=== PATIENT | male | born 1960 | race Caucasian/White ===

== ENCOUNTER 2017-05-03 15:01 | Observation (INO) | payer OTHER ==
[2017-05-03 15:22] VITALS: BMI 37.2
[2017-05-03 15:47] LABS: EOS % 1.9 % (0-4.5); HEMOGLOBIN 16.8 GM/dL (11.7-16.9); LYMPH % 20.1 % (8-40); MCH 30.2 pg (25.7-33.7); MCHC 33.7 g/dl (32.0-35.9); MEAN CELL VOLUME 89.7 fl (80-96); MEAN PLT VOLUME 7.9 fl (7.5-11.1); MONO % 7.7 % (3.8-10.2); NEUT % 69.3 % (42.8-82.8); PLATELET COUNT 238 K/MM3 (134-434); RBC 5.57 M/mm3 (4.00-5.60); WHITE BLOOD COUNT 12.5 K/mm3 (4.0-10.0)
--- NOTE | 2017-05-03 15:47 | PDOC ---
History of Present Illness - General Chief Complaint: Shortness of Breath Stated Complaint: SOB - History of Present Illness Initial Comments: Mr Renner is a 56yo M with a PMHx of Afib, HTN, High Chol, Anxiety, Asthma who presented with acute onset shortness of breath and palpitations while walking in the park today at 2pm. He noticed dyspnea at rest and palpitations. Called EMS. Denies chest pain. Continues to say that it reminds him of his "panic attacks". He denies prior anginal symptoms, denies diaphoresis. Denies wheezing, cough, or chest tightness. Denies stressful event that occurred. He was seen at Dr Mendoza's office this morning, who he follows for newly diagnosed Afib. Of note, EKG in ambulance shows Afib @ 128bpm with ST depressions in I, aVL, V4 , V5, V6 PMD - Dr Lissett Avalos Past History - Past Medical History Allergies/Adverse Reactions: Allergies Allergy/AdvReac Type Severity Reaction Status Date / Time No Known Allergies Allergy Verified 02/01/16 11:07 Home Medications: Ambulatory Orders Bimatoprost [Lumigan] 1 drop IO DAILY 02/01/16 Fluticasone Propionate [Flovent Diskus] 2 puff IH DAILY 02/01/16 Tamsulosin HCl [Flomax -] 0.4 mg PO DAILY 02/01/16 Apixaban [Eliquis -] 2.5 mg PO BID 05/03/17 Diltiazem Cd [Cardizem Cd -] 360 mg PO DAILY 05/03/17 Montelukast Sodium [Singulair] 10 mg PO DAILY 05/03/17 Valsartan 320 mg PO DAILY 05/03/17 Atorvastatin Calcium 20 mg PO HS #30 tablet 05/04/17 Cardiac Disorders: Yes (a fib) COPD: No Diabetes: Yes (?) HTN: Yes Hypercholesterolemia: Yes Psychiatric Problems: Yes (anxiety) - Suicide/Smoking/Psychosocial Hx Smoking History: Never smoked Hx Alcohol Use: No Drug/Substance Use Hx: No Substance Use Type: None Review of Systems - Review of Systems Constitutional: No: Chills, Diaphoresis, Fever HEENTM: No: Eye Pain, Blurred Vision, Tearing Respiratory: Yes: Shortness of Breath. No: Cough, Orthopnea Cardiac (ROS): No: Chest Pain, Edema ABD/GI: No: Abdominal Distended, Constipated, Diarrhea : No: Burning, Dysuria, Discharge Musculoskeletal: No: Back Pain, Gout, Joint Pain Integumentary: No: Bruising, Change in Color, Dryness Neurological: No: Headache, Numbness, Paresthesia Psychiatric: No: Anxiety, Depression, Frequent Crying Endocrine: No: Excessive Sweating, Flushing Hematologic/Lymphatic: No: Anemia, Blood Clots, Easy Bleeding *Physical Exam - Vital Signs Last Vital Signs Temp Pulse Resp BP Pulse Ox 97.8 F 95 H 18 122/76 100 05/03/17 15:20 05/03/17 15:20 05/03/17 15:20 05/03/17 15:20 05/03/17 15:20 - Physical Exam Comments: GEN: AAOx3, NAD, Lying comfortably in bed HEENT: PERRLA, EOMi CV: S1, S2, irregularly irregular rhythm LUNG: CTABL ABD: Soft, NT, ND, normoactive BS MSK: No edema, no erythema NEURO: CN 2-12 intact ED Treatment Course - LABORATORY CBC & Chemistry Diagram: 05/04/17 05:05 05/04/17 05:05 - RADIOLOGY Radiology Studies Ordered: Category Date Time Status CHEST X-RAY PORTABLE* [RAD] Stat Radiology 05/03/17 15:33 Ordered Medical Decision Making - Medical Decision Making 56yo M with hx of HTN, HLD, Afib, Anxiety, Asthma presents with an episode of SOB and palpitations at rest. Denies CP. EKG in ambulance shows STD in lateral leads. Stat EKG in our ER, shows no ST or T wave changes, no Q waves. It is possible the patient went into RVR while driving and cause demand ischemia to lateral heart causing STD. Currently his HR is in 70s-80s, and his EKG shows no signs of ischemia. WIll get CBC, CMP, Coags, Cardiac profile, CXR. Dispo likely obs. Case d/w Dr Partida 05/03/17 17:08 Labs show leukocytosis (likely reactive), troponin negative. Discussed case w/ Dr Mendoza, who states that the patient has CAD risk factors. He agrees with tele observation. Would like serial troponins and repeat EKG. Patient agreeable. *DC/Admit/Observation/Transfer Diagnosis at time of Disposition: Atrial fibrillation Qualifiers: Atrial fibrillation type: unspecified Qualified Code(s): I48.91 - Unspecified atrial fibrillation - Discharge Dispostion Admit: Yes - Prescriptions - Referrals - Patient Instructions - Post Discharge Activity
--- NOTE | 2017-05-03 15:49 | PDOC ---
Attending Attestation - Resident Resident Name: RamonVu - ED Attending Attestation I have performed the following: I have examined & evaluated the patient, The case was reviewed & discussed with the resident, I agree w/resident's findings & plan, Exceptions are as noted - Physicial Exam PE: 05/03/17 16:06 Patient is awake and alert, obese, in no distress in the ER, afebrile; Normocephalic, atraumatic PERRLA, EOMI No JVD CTA Irregularly irregular No lower extremity edema - Medical Decision Making 05/03/17 16:06 Patient is a 56-year-old male with history of A. fib on eliquis, CAD, hypercholesterolemia presents by EMS after developing shortness of breath and what patient describes as anxiety. EKG obtained by EMS showed ST segment depressions in 1, aVL, V5 through V6 at the time of the patient's symptomatology. On arrival in the ER, patient's asymptomatic. Physical exam reveals no evidence of acute pulmonary edema, there are no focal neurological deficits and abdomen is soft and nontender to palpation. EKG shows rate controlled A. fib without evidence of acute ischemia. I suspect demand ischemia related to rate increase during the acute onset of shortness of breath. PE is unlikely. Given patient's comorbidities, Patient will require placement in observation for serial cardiac enzymes and a cardiac consult. <Eduardo Partida - Last Filed: 05/03/17 16:06> - HPI HPI: 05/03/17 16:12 The patient is a 56 year old male, with a significant past medical history of atrial fibrillation, hypertension, hyperlipidemia, anxiety, asthma, who presents to the emergency department via EMS with, shortness of breath and palpitations. The patient reports the shortness of breath and palpitations began at rest earlier today. He reports the symptoms are similar to his prior panic attacks. Allergies: NKA Documentation prepared by Mick Jarvis, acting as medical typist for Eduardo Partida MD. <Mick Jarvis - Last Filed: 05/03/17 16:13>
[2017-05-03 16:01] LABS: INR 1.11 (0.82-1.09); PROTHROMBIN TIME (PATIENT) 12.5 SEC (9.98-11.88)
[2017-05-03 16:04] LABS: ACTIVATED PTT 32.4 SECONDS (26.9-34.4)
[2017-05-03 16:53] LABS: ALBUMIN 3.6 g/dl (3.4-5.0); ANION GAP 6 (8-16); BILIRUBIN,TOTAL 1.2 mg/dL (0.2-1.0); BLOOD UREA NITROGEN 15 mg/dL (7-18); CALCIUM 8.2 mg/dL (8.5-10.1); CHLORIDE 105 mmol/L (98-107); CO2 26 mmol/L (21-32); CREATININE 0.8 mg/dL (0.7-1.3); GLUCOSE,RANDOM 104 mg/dL (74-106); POTASSIUM 3.9 mmol/L (3.5-5.1); SGOT/AST 14 U/L (15-37); SGPT/ALT 36 U/L (12-78); SODIUM 137 mmol/L (136-145); TOT PROT 6.5 g/dl (6.4-8.2)
[2017-05-03 16:54] LABS: ALK PHOS 79 U/L (45-117)
--- NOTE | 2017-05-03 19:44 | PN ---
Teaching Attending Note Name of Resident: Preston Leigh ATTENDING PHYSICIAN STATEMENT I saw and evaluated the patient. I reviewed the resident's note and discussed the case with the resident. I agree with the resident's findings and plan as documented. SUBJECTIVE: Patient c/o palpitations and anxious state. OBJECTIVE: Gen: Anxious HEENT: PERRLA, EOMI, MMM CVS: RRR LUNGS: CTA Abd: Soft, NT, ND, BS+ EXT: Nl ROM, Pulses 2+ Neuro: CN 2-12 intact CBCD WBC 12.5 K/mm3 (4.0-10.0) H 05/03/17 15:35 RBC 5.57 M/mm3 (4.00-5.60) 05/03/17 15:35 Hgb 16.8 GM/dL (11.7-16.9) 05/03/17 15:35 Hct 50.0 % (35.4-49) H 05/03/17 15:35 MCV 89.7 fl (80-96) 05/03/17 15:35 MCHC 33.7 g/dl (32.0-35.9) 05/03/17 15:35 RDW 13.0 % (11.9-15.9) 05/03/17 15:35 Plt Count 238 K/MM3 (134-434) D 05/03/17 15:35 MPV 7.9 fl (7.5-11.1) D 05/03/17 15:35 CMP Sodium 137 mmol/L (136-145) 05/03/17 15:35 Potassium 3.9 mmol/L (3.5-5.1) 05/03/17 15:35 Chloride 105 mmol/L (98-107) 05/03/17 15:35 Carbon Dioxide 26 mmol/L (21-32) 05/03/17 15:35 Anion Gap 6 (8-16) L 05/03/17 15:35 BUN 15 mg/dL (7-18) 05/03/17 15:35 Creatinine 0.8 mg/dL (0.7-1.3) 05/03/17 15:35 Creat Clearance w eGFR > 60 (>60) 05/03/17 15:35 Random Glucose 104 mg/dL (74-106) 05/03/17 15:35 Calcium 8.2 mg/dL (8.5-10.1) L 05/03/17 15:35 Total Bilirubin 1.2 mg/dL (0.2-1.0) H D 05/03/17 15:35 AST 14 U/L (15-37) L D 05/03/17 15:35 ALT 36 U/L (12-78) 05/03/17 15:35 Alkaline Phosphatase 79 U/L (45-117) 05/03/17 15:35 Total Protein 6.5 g/dl (6.4-8.2) 05/03/17 15:35 Albumin 3.6 g/dl (3.4-5.0) 05/03/17 15:35 CARDIAC ENZYMES Creatine Kinase 96 IU/L (39-308) 05/03/17 15:35 Troponin I < 0.02 ng/ml (0.00-0.05) 05/03/17 15:04 ASSESSMENT AND PLAN: Afib with RVR Admit to telemetry Trend troponin Continue Cardizem and Elliquis Cardiology consult appreciated Anxiety- Xanax 0.25 stat
[2017-05-03] MEDS ORDERED: APIXABAN 2.5 MG TABLET PO ONE ×2 (19:56)
--- NOTE | 2017-05-03 20:19 | HP ---
CHIEF COMPLAINT: Palpitations PCP: Dr. Avalos HISTORY OF PRESENT ILLNESS: Patient is a 56 yo M with Pmhx of A-fib (dx in 2016 ), HTN, HLD, Anxiety, Asthma, DUNCAN, BIBA to the ED because of Palpitations that started while walking in the park. He said he saw his supervisor drying and winding (Dr. Lopez) this morning and his blood pressure was elevated and decided to take the walk. He said the SOB developed after the palpitations because he was afraid and had anxiety. Patient denied experiencing similar symptoms. In the ambulance, patient's EKG revealed A-Fib W/ RVR @ 128 and STD in lateral leads. In the ER, EKG was notable for A-fib @ 98 without STD. Patient denied CP, wheezing, cough, chest tightness, dizziness, LOC, abdominal pain, dysuria. ER course was notable for: (1) EKG- A fib (2)Trop- neg x 1 (3) CXR- unremarkable Recent Travel: n/a PAST MEDICAL HISTORY: as per HPI PAST SURGICAL HISTORY: n/a Social History: Smoking: former, quit 10 years ago Alcohol: denies Drugs: denies Family History: Mother- lymphoma, DM Allergies No Known Allergies Allergy (Verified 02/01/16 11:07) HOME MEDICATIONS: Home Medications Medication Instructions Recorded Atorvastatin Calcium 20 mg PO HS 02/01/16 Bimatoprost [Lumigan] 1 drop IO DAILY 02/01/16 Fluticasone Propionate [Flovent 2 puff IH DAILY 02/01/16 Diskus] Tamsulosin HCl [Flomax -] 0.4 mg PO DAILY 02/01/16 Apixaban [Eliquis -] 2.5 mg PO BID 05/03/17 Diltiazem Cd [Cardizem Cd -] 360 mg PO DAILY 05/03/17 Montelukast Sodium [Singulair] 10 mg PO DAILY 05/03/17 Valsartan 320 mg PO DAILY 05/03/17 REVIEW OF SYSTEMS CONSTITUTIONAL: Absent: fever, chills, diaphoresis, generalized weakness, malaise, loss of appetite, weight change HEENT: Absent: rhinorrhea, nasal congestion, throat pain, throat swelling, difficulty swallowing, mouth swelling, ear pain, eye pain, visual changes CARDIOVASCULAR: palpitations, irregular heart rate Absent: chest pain, syncope, lightheadedness, peripheral edema RESPIRATORY: SOB Absent: cough, dyspnea with exertion, orthopnea, wheezing, stridor, hemoptysis GASTROINTESTINAL: Absent: abdominal pain, abdominal distension, nausea, vomiting, diarrhea, constipation, melena, hematochezia GENITOURINARY: Absent: dysuria, frequency, urgency, hesitancy, hematuria, flank pain, genital pain MUSCULOSKELETAL: Absent: myalgia, arthralgia, joint swelling, back pain, neck pain SKIN: Absent: rash, itching, pallor HEMATOLOGIC/IMMUNOLOGIC: Absent: easy bleeding, easy bruising, lymphadenopathy, frequent infections ENDOCRINE: Absent: unexplained weight gain, unexplained weight loss, heat intolerance, cold intolerance NEUROLOGIC: Absent: headache, focal weakness or paresthesias, dizziness, unsteady gait, seizure, mental status changes, bladder or bowel incontinence PSYCHIATRIC: Absent: anxiety, depression, suicidal or homicidal ideation, hallucinations. PHYSICAL EXAMINATION Vital Signs - 24 hr 05/03/17 15:20 Temperature 97.8 F Pulse Rate 95 H Respiratory 18 Rate Blood Pressure 122/76 O2 Sat by Pulse 100 Oximetry (%) GENERAL: Awake, alert, and fully oriented, in no acute distress. HEAD: Normal with no signs of trauma. EYES: Pupils equal, round and reactive to light, extraocular movements intact, sclera anicteric, conjunctiva clear. EARS, NOSE, THROAT: oropharynx clear without exudates. Moist mucous membranes. NECK: supple without lymphadenopathy, JVD, or masses. LUNGS: Breath sounds equal, clear to auscultation bilaterally. No wheezes, and no crackles. HEART: tachy, Regular rhythm, s1 s2 without Murmurs appreciated ABDOMEN: obese, Soft, nontender, not distended, normoactive bowel sounds, no guarding, no rebound, no masses. UPPER EXTREMITIES: 2+ pulses, warm, well-perfused. No cyanosis. No clubbing. No peripheral edema. LOWER EXTREMITIES: 2+ pulses, warm, well-perfused. No calf tenderness. No peripheral edema. NEUROLOGICAL: Cranial nerves II-XII intact. Normal speech. PSYCHIATRIC: anxious, Cooperative. SKIN: Warm, dry, normal turgor, no rashes or lesions noted, normal capillary refill. Laboratory Results - last 24 hr 05/03/17 05/03/17 05/03/17 15:04 15:04 15:35 WBC 12.5 H RBC 5.57 Hgb 16.8 Hct 50.0 H MCV 89.7 MCH 30.2 MCHC 33.7 RDW 13.0 Plt Count 238 D MPV 7.9 D Neutrophils % 69.3 Lymphocytes % 20.1 D Monocytes % 7.7 Eosinophils % 1.9 Basophils % 1.0 PT with INR 12.50 H INR 1.11 PTT (Actin FS) 32.4 Sodium Potassium Chloride Carbon Dioxide Anion Gap BUN Creatinine Creat Clearance w eGFR Random Glucose Calcium Total Bilirubin AST ALT Alkaline Phosphatase Creatine Kinase 95 Troponin I < 0.02 Total Protein Albumin 05/03/17 15:35 WBC RBC Hgb Hct MCV MCH MCHC RDW Plt Count MPV Neutrophils % Lymphocytes % Monocytes % Eosinophils % Basophils % PT with INR INR PTT (Actin FS) Sodium 137 Potassium 3.9 Chloride 105 Carbon Dioxide 26 Anion Gap 6 L BUN 15 Creatinine 0.8 Creat Clearance w eGFR > 60 Random Glucose 104 Calcium 8.2 L Total Bilirubin 1.2 H D AST 14 L D ALT 36 Alkaline Phosphatase 79 Creatine Kinase 96 Troponin I Total Protein 6.5 Albumin 3.6 ASSESSMENT/PLAN: Patient is a 56 yo M with Pmhx of A-fib (dx in 2016), HTN, HLD, Anxiety, Asthma , DUNCAN, BIBA to the ED because of Palpitations that started while walking in the park and was found to have A-fib with RVR. #A-Fib w/ RVR -EMS EKG: Afib w/ RVR @ 128, STD leads I,AVL,V5,V6 -Currently Regular Rhythm -ChadVasc Score 1 -Trops negative x 1 -FU repeat Trops -Cardiac monitoring -Cont. Home meds: Cardizem 360mg -Will give his night dose of Eliquis 2.5mg -Obs-tele -FU am labs #HTN -continue home meds -Valsartan 320mg #Anxiety -0.25 Xanax #FEN -No IV fluids -WNL -Sodium restricted diet #PPX EAM Obs-Tele Visit type - Emergency Visit Emergency Visit: Yes Care time: The patient presented to the Emergency Department on the above date and was hospitalized for further evaluation of their emergent condition. - New Patient This patient is new to me today: Yes Date on this admission: 05/03/17 - Critical Care Critical Care patient: No
--- NOTE | 2017-05-03 20:38 | CON.CARD ---
Consult Consult Specialty:: Cardiology - History of Present Illness History of Present Illness: Patient is a 56 yo M with Pmhx of A-fib (dx in 2016), HTN, HLD, Anxiety, Asthma , [place], BIBA to the ED because of Palpitations that started while walking in the park. He said he saw his track patrol (Dr. Lopez) this morning and his blood pressure was elevated and decided to take the walk. He said the SOB developed after the palpitations because he was afraid and had anxiety. Patient denied experiencing similar symptoms. In the ambulance, patient's EKG revealed A -Fib W/ RVR @ 128 and STD in lateral leads. In the ER, EKG was notable for A- fib @ 98 without STD. Patient denied CP, wheezing, cough, chest tightness, dizziness, LOC, abdominal pain, dysuria. - History Source History Provided By: Patient, Medical Record - Past Medical History Cardio/Vascular: Yes: AFIB, HTN, Hyperlipdemia - Alcohol/Substance Use Hx Alcohol Use: No - Smoking History Smoking history: Never smoked Home Medications - Allergies Allergies/Adverse Reactions: Allergies Allergy/AdvReac Type Severity Reaction Status Date / Time No Known Allergies Allergy Verified 02/01/16 11:07 - Home Medications Home Medications: Ambulatory Orders Atorvastatin Calcium 20 mg PO HS 02/01/16 Bimatoprost [Lumigan] 1 drop IO DAILY 02/01/16 Fluticasone Propionate [Flovent Diskus] 2 puff IH DAILY 02/01/16 Tamsulosin HCl [Flomax -] 0.4 mg PO DAILY 02/01/16 Apixaban [Eliquis -] 2.5 mg PO BID 05/03/17 Diltiazem Cd [Cardizem Cd -] 360 mg PO DAILY 05/03/17 Montelukast Sodium [Singulair] 10 mg PO DAILY 05/03/17 Valsartan 320 mg PO DAILY 05/03/17 Review of Systems - Review of Systems Constitutional: reports: No Symptoms Eyes: reports: No Symptoms HENT: reports: No Symptoms Neck: reports: No Symptoms Cardiovascular: reports: Palpitations Gastrointestinal: reports: No Symptoms Genitourinary: reports: No Symptoms Breasts: reports: No Symptoms Reported Musculoskeletal: reports: No Symptoms Integumentary: reports: No Symptoms Neurological: reports: No Symptoms Endocrine: reports: No Symptoms Hematology/Lymphatic: reports: No Symptoms Psychiatric: reports: No Symptoms Vital Signs: Vital Signs Temperature 97.8 F 05/03/17 15:20 Pulse Rate 95 H 05/03/17 15:20 Respiratory Rate 18 05/03/17 15:20 Blood Pressure 122/76 05/03/17 15:20 O2 Sat by Pulse Oximetry (%) 100 05/03/17 15:20 Constitutional: Yes: Well Nourished, No Distress, Calm Eyes: Yes: WNL, Conjunctiva Clear, EOM Intact HENT: Yes: WNL, Atraumatic, Normocephalic Neck: Yes: WNL, Supple, Trachea Midline Respiratory: Yes: WNL, Regular, CTA Bilaterally Gastrointestinal: Yes: WNL, Normal Bowel Sounds Renal/: Yes: WNL Cardiovascular: Yes: Pulse Irregular Heart Sounds: Yes: S1, S2 Musculoskeletal: Yes: WNL Extremities: Yes: WNL Integumentary: Yes: WNL Neurological: Yes: WNL, Alert, Oriented ...Motor Strength: WNL Psychiatric: Yes: WNL, Alert, Oriented - Other Data Labs, Other Data: CBC, BMP 05/03/17 15:35 05/03/17 15:35 INR, PTT INR 1.11 (0.82-1.09) 05/03/17 15:04 Troponin, BNP 05/03/17 15:04 Troponin I < 0.02 Troponin, BNP 05/03/17 15:04 Troponin I < 0.02 Imaging - Results Chest X-ray: Image Reviewed (no i/e) EKG: Image Reviewed (af LDEA) Problem List - Problems (1) Asthma Code(s): J45.909 - UNSPECIFIED ASTHMA, UNCOMPLICATED (2) Atrial fibrillation Code(s): I48.91 - UNSPECIFIED ATRIAL FIBRILLATION Qualifiers: Atrial fibrillation type: unspecified Qualified Code(s): I48.91 - Unspecified atrial fibrillation (3) Atrial fibrillation and flutter Code(s): I48.91 - UNSPECIFIED ATRIAL FIBRILLATION; I48.92 - UNSPECIFIED ATRIAL FLUTTER (4) HLD (hyperlipidemia) Code(s): E78.5 - HYPERLIPIDEMIA, UNSPECIFIED (5) HTN (hypertension) Code(s): I10 - ESSENTIAL (PRIMARY) HYPERTENSION (6) Leukocytosis Code(s): D72.829 - ELEVATED WHITE BLOOD CELL COUNT, UNSPECIFIED (7) Polycythemia Code(s): D75.1 - SECONDARY POLYCYTHEMIA Assessment/Plan AF asthma htn hlp anxiety plan cardiac [facility] stable cont present rx cont rate controll and AC
[2017-05-03] MEDS ORDERED: ALPRAZolam 0.25 MG TABLET ONE (20:58)
[2017-05-03] MEDS: ALPRAZolam 0.25 MG TABLET PO ONE ×2 (21:00→22:01)
[2017-05-03] MEDS ORDERED: MONTELUKAST NA 10 MG TABLET PO SCH (22:00)
[2017-05-03] MEDS: APIXABAN 2.5 MG TABLET PO SCH (22:00)
[2017-05-03] MEDS ORDERED: ATORVASTATIN CA 20 MG TABLET (FP) PO SCH (22:00)
[2017-05-04 06:36] LABS: BASO % 0.5 % (0-2.0); EOS % 2.6 % (0-4.5); HEMATOCRIT 48.7 % (35.4-49); HEMOGLOBIN 16.6 GM/dL (11.7-16.9); MCH 30.9 pg (25.7-33.7); MEAN CELL VOLUME 91.1 fl (80-96); MEAN PLT VOLUME 8.6 fl (7.5-11.1); MONO % 10.9 % (3.8-10.2); PLATELET COUNT 210 K/MM3 (134-434); RBC 5.35 M/mm3 (4.00-5.60); RDW 13.2 % (11.9-15.9)
[2017-05-04 06:43] LABS: INR 1.04 (0.82-1.09); PROTHROMBIN TIME (PATIENT) 11.7 SEC (9.98-11.88)
[2017-05-04 07:00] LABS: ALBUMIN 3.4 g/dl (3.4-5.0); ANION GAP 5 (8-16); BLOOD UREA NITROGEN 17 mg/dL (7-18); CALCIUM 7.8 mg/dL (8.5-10.1); CHLORIDE 106 mmol/L (98-107); CO2 29 mmol/L (21-32); GLUCOSE,RANDOM 100 mg/dL (74-106); POTASSIUM 4.5 mmol/L (3.5-5.1); SGOT/AST 8 U/L (15-37); SGPT/ALT 29 U/L (12-78); SODIUM 140 mmol/L (136-145)
[2017-05-04 07:03] LABS: ALK PHOS 74 U/L (45-117); BILIRUBIN,TOTAL 0.9 mg/dL (0.2-1.0)
[2017-05-04] MEDS ORDERED: TAMSULOSIN HCL 0.4 MG CAP.ER.24H (FP) PO SCH (08:30)
--- NOTE | 2017-05-04 08:51 | EKG ---
Test Reason : Blood Pressure : / mmHG Vent. Rate : 098 BPM Atrial Rate : 085 BPM P-R Int : 000 ms QRS Dur : 108 ms QT Int : 350 ms P-R-T Axes : 000 -39 -08 degrees QTc Int : 446 ms POOR DATA QUALITY, INTERPRETATION MAY BE ADVERSELY AFFECTED ATRIAL FIBRILLATION LEFT AXIS DEVIATION ABNORMAL ECG WHEN COMPARED WITH ECG OF 02-FEB-2016 14:28, NO SIGNIFICANT CHANGE WAS FOUND Confirmed by ISABEL RICE MD ([id number]) on 05/04/2017 8:51:05 AM Referred By: Confirmed By:ISABEL RICE MD
--- NOTE | 2017-05-04 08:52 | EKG ---
Test Reason : Blood Pressure : / mmHG Vent. Rate : 087 BPM Atrial Rate : 087 BPM P-R Int : 170 ms QRS Dur : 124 ms QT Int : 390 ms P-R-T Axes : 061 -44 051 degrees QTc Int : 469 ms NORMAL SINUS RHYTHM LEFT AXIS DEVIATION SEPTAL INFARCT , AGE UNDETERMINED ABNORMAL ECG WHEN COMPARED WITH ECG OF 03-MAY-2017 15:38, SINUS RHYTHM HAS REPLACED ATRIAL FIBRILLATION SEPTAL INFARCT IS NOW PRESENT ST NO LONGER DEPRESSED IN INFERIOR LEADS Confirmed by DWAYNE BUTTS, ISABEL ([id number]) on 05/04/2017 8:51:49 AM Referred By: Confirmed By:ISABEL RICE MD
--- NOTE | 2017-05-04 09:20 | PN ---
Progress Note, Physician History of Present Illness: Patient is a 56 yo M with Pmhx of A-fib (dx in 2016), HTN, HLD, Anxiety, Asthma , [place], BIBA to the ED because of Palpitations that started while walking in the park. He said he saw his applications instructor (Dr. Lopez) this morning and his blood pressure was elevated and decided to take the walk. He said the SOB developed after the palpitations because he was afraid and had anxiety. Patient denied experiencing similar symptoms. In the ambulance, patient's EKG revealed A -Fib W/ RVR @ 128 and STD in lateral leads. In the ER, EKG was notable for A- fib @ 98 without STD. Patient denied CP, wheezing, cough, chest tightness, dizziness, LOC, abdominal pain, dysuria. - Current Medication List Current Medications: Active Medications Apixaban (Eliquis -) 2.5 mg PO BID [facility] Last Admin: 05/03/17 22:00 Dose: 2.5 mg Atorvastatin Calcium (Lipitor -) 20 mg PO [facility] Last Admin: 05/03/17 22:00 Dose: 20 mg Diltiazem HCl (Cardizem Cd -) 360 mg PO DAILY [facility] Mometasone Furoate (Asmanex 220mcg -) 1 puff IH [facility] Montelukast Sodium (Singulair -) 10 mg PO [facility] Last Admin: 05/03/17 22:00 Dose: 10 mg Tamsulosin HCl (Flomax -) 0.4 mg PO DAILY@0830 [facility] Valsartan (Diovan -) 320 mg PO DAILY [facility] - Objective Vital Signs: Vital Signs Temperature 97.8 F 05/04/17 03:48 Pulse Rate 72 05/04/17 06:00 Respiratory Rate 18 05/04/17 06:00 Blood Pressure 139/91 05/04/17 06:00 O2 Sat by Pulse Oximetry (%) 100 05/04/17 05:00 Eyes: Yes: WNL, Conjunctiva Clear, EOM Intact HENT: Yes: WNL, Atraumatic, Normocephalic Neck: Yes: WNL, Supple, Trachea Midline Cardiovascular: Yes: Pulse Irregular, S1, S2 Respiratory: Yes: WNL, Regular, CTA Bilaterally Gastrointestinal: Yes: WNL, Normal Bowel Sounds Genitourinary: Yes: WNL Musculoskeletal: Yes: WNL Extremities: Yes: WNL Edema: No Integumentary: Yes: WNL Neurological: Yes: WNL, Alert, Oriented ...Motor Strength: WNL Psychiatric: Yes: WNL Labs: CBC, BMP 05/04/17 05:05 05/04/17 05:05 INR, PTT INR 1.04 (0.82-1.09) 05/04/17 05:05 Problem List - Problems (1) Asthma Code(s): J45.909 - UNSPECIFIED ASTHMA, UNCOMPLICATED (2) Atrial fibrillation Code(s): I48.91 - UNSPECIFIED ATRIAL FIBRILLATION Qualifiers: Atrial fibrillation type: unspecified Qualified Code(s): I48.91 - Unspecified atrial fibrillation (3) Atrial fibrillation and flutter Code(s): I48.91 - UNSPECIFIED ATRIAL FIBRILLATION; I48.92 - UNSPECIFIED ATRIAL FLUTTER (4) HLD (hyperlipidemia) Code(s): E78.5 - HYPERLIPIDEMIA, UNSPECIFIED (5) HTN (hypertension) Code(s): I10 - ESSENTIAL (PRIMARY) HYPERTENSION (6) Leukocytosis Code(s): D72.829 - ELEVATED WHITE BLOOD CELL COUNT, UNSPECIFIED (7) Polycythemia Code(s): D75.1 - SECONDARY POLYCYTHEMIA Assessment/Plan AF asthma htn hlp anxiety plan cardiac [facility] stable cont present rx cont rate controll and AC
[2017-05-04 09:49] VITALS: BP 114/74; PULSE 74; TEMP 98.2
[2017-05-04] MEDS ORDERED: VALSARTAN 160 MG TABLET (UD) PO SCH (10:00)
[2017-05-04] MEDS: APIXABAN 2.5 MG TABLET PO SCH (10:03)
--- NOTE | 2017-05-04 12:26 | DS ---
Physical Exam: SUBJECTIVE: Patient seen and examined. asymptomatic. no episodes since in the hospital. states he been under increased stress lately. claims medication compliance. dnies Cp, SOB, fever, chills, palpitations OBJECTIVE: Vital Signs Period Temp Pulse Resp BP Sys/Pavon Pulse Ox Last 24 Hr 97.7 F-98.4 F 72-95 14-20 113-139/71-91 97-100 PHYSICAL EXAM GENERAL: The patient is awake, alert, and fully oriented, in no acute distress. HEAD: Normal with no signs of trauma. EYES: PERRL, extraocular movements intact, sclera anicteric, conjunctiva clear. ENT: Ears normal, nares patent, oropharynx clear without exudates, moist mucous membranes. NECK: Trachea midline, full range of motion, supple. LUNGS: Breath sounds equal, clear to auscultation bilaterally, no wheezes, no crackles, no accessory muscle use. HEART: Regular rate and rhythm, S1, S2 without murmur, rub or gallop. ABDOMEN: Soft, nontender, nondistended, normoactive bowel sounds, no guarding, no rebound, no hepatosplenomegaly, no masses. obese EXTREMITIES: 2+ pulses, warm, well-perfused, no edema. NEUROLOGICAL: Cranial nerves II through XII grossly intact. Normal speech, gait not observed. PSYCH: Normal mood, normal affect. SKIN: Warm, dry, normal turgor, no rashes or lesions noted. LABS Laboratory Results - last 24 hr 05/03/17 05/03/17 05/03/17 15:04 15:04 15:35 WBC 12.5 H RBC 5.57 Hgb 16.8 Hct 50.0 H MCV 89.7 MCH 30.2 MCHC 33.7 RDW 13.0 Plt Count 238 D MPV 7.9 D Neutrophils % 69.3 Lymphocytes % 20.1 D Monocytes % 7.7 Eosinophils % 1.9 Basophils % 1.0 PT with INR 12.50 H INR 1.11 PTT (Actin FS) 32.4 Sodium Potassium Chloride Carbon Dioxide Anion Gap BUN Creatinine Creat Clearance w eGFR Random Glucose Calcium Total Bilirubin AST ALT Alkaline Phosphatase Creatine Kinase 95 Troponin I < 0.02 Total Protein Albumin 05/03/17 05/03/17 05/03/17 15:35 15:35 20:18 WBC RBC Hgb Hct MCV MCH MCHC RDW Plt Count MPV Neutrophils % Lymphocytes % Monocytes % Eosinophils % Basophils % PT with INR INR PTT (Actin FS) Sodium 137 Potassium 3.9 Chloride 105 Carbon Dioxide 26 Anion Gap 6 L BUN 15 Creatinine 0.8 Creat Clearance w eGFR > 60 Random Glucose 104 Calcium 8.2 L Total Bilirubin 1.2 H D AST 14 L D ALT 36 Alkaline Phosphatase 79 Creatine Kinase 96 82 Troponin I TNP < 0.02 Total Protein 6.5 Albumin 3.6 05/04/17 05/04/17 05/04/17 05:05 05:05 05:05 WBC 10.0 RBC 5.35 Hgb 16.6 Hct 48.7 MCV 91.1 MCH 30.9 MCHC 34.0 RDW 13.2 Plt Count 210 MPV 8.6 Neutrophils % 61.0 Lymphocytes % 25.0 D Monocytes % 10.9 H Eosinophils % 2.6 Basophils % 0.5 PT with INR 11.70 INR 1.04 PTT (Actin FS) Sodium 140 Potassium 4.5 Chloride 106 Carbon Dioxide 29 Anion Gap 5 L BUN 17 Creatinine 1.0 D Creat Clearance w eGFR > 60 Random Glucose 100 Calcium 7.8 L Total Bilirubin 0.9 D AST 8 L D ALT 29 Alkaline Phosphatase 74 Creatine Kinase Troponin I Total Protein 6.0 L Albumin 3.4 HOSPITAL COURSE: Date of Admission:05/03/17 Date of Discharge: 05/04/17 Admitting diagnosis: Afib with RVR Pre hospital course Patient is a 56 yo M with Pmhx of A-fib (dx in 2016), HTN, HLD, Anxiety, Asthma , DUNC[place], BIBA to the ED because of Palpitations that started while walking in the park. He said he saw his journeyman meat cutter (Dr. Lopez) this morning and his blood pressure was elevated and decided to take the walk. He said the SOB developed after the palpitations because he was afraid and had anxiety. Patient denied experiencing similar symptoms. In the ambulance, patient's EKG revealed A -Fib W/ RVR @ 128 and STD in lateral leads. In the ER, EKG was notable for A- fib @ 98 without STD. Patient denied CP, wheezing, cough, chest tightness, dizziness, LOC, abdominal pain, dysuria. Subsequent hospital course tele observation. re-started on home medications. converted to NSR. no events on monitor. Cardiac enzymes neg x2. evaluated by cardio. discussed relaxation techniques. d/c home Minutes to complete discharge: 40 Discharge Summary Reason For Visit: ATRIAL FIBRILLATION Condition: Improved - Instructions Diet, Activity, Other Instructions: You were admitted to the hospital due to your heart rate being uncontrolled. This was likely brought on by stress. Learn relaxation techniques to help you deal with stress. Handout given Continue to take medication as prescribed. Follow up wtih your primary care doctor in 1 week Follow up with cardiology this month Return to the hospital if your symptoms return Referrals: Robert Byrd MD [Staff Physician] - Disposition: HOME - Home Medications Comprehensive Discharge Medication List: Ambulatory Orders Bimatoprost [Lumigan] 1 drop IO DAILY 02/01/16 Fluticasone Propionate [Flovent Diskus] 2 puff IH DAILY 02/01/16 Tamsulosin HCl [Flomax -] 0.4 mg PO DAILY 02/01/16 Apixaban [Eliquis -] 2.5 mg PO BID 05/03/17 Diltiazem Cd [Cardizem Cd -] 360 mg PO DAILY 05/03/17 Montelukast Sodium [Singulair] 10 mg PO DAILY 05/03/17 Valsartan 320 mg PO DAILY 05/03/17 Atorvastatin Calcium 20 mg PO HS #30 tablet 05/04/17 This patient is new to me today: Yes Date on this admission: 05/04/17 Emergency Visit: Yes ED Registration Date: 05/03/17 Care time: The patient presented to the Emergency Department on the above date and was hospitalized for further evaluation of their emergent condition. Critical Care patient: No - Discharge Referral Referred to [facility] No
[2017-05-04] MEDS ORDERED: MOMETASONE FUROATE 220 MCG/IH INHALER IH SCH (22:00)
== END 2017-05-04 14:12 | disposition home or self-care (01) ==
LOC: JER 15:01 → JERBED 19:49 → J4W 21:35
PROVIDERS: ADMIT Internal Medicine; ATTEND Internal Medicine
DX: I48.91 Unspecified atrial fibrillation (principal); I48.92 Unspecified atrial flutter; D75.1 Secondary polycythemia; I10 Essential (primary) hypertension; E78.5 Hyperlipidemia, unspecified; F41.9 Anxiety disorder, unspecified; G47.33 Obstructive sleep apnea (adult) (pediatric); J45.909 Unspecified asthma, uncomplicated; D72.829 Elevated white blood cell count, unspecified; Z79.01 Long term (current) use of anticoagulants
CPT/HCPCS: 36415; 71045-TC; 80053; 82550; 84484; 85025; 85610; 85730; 93005; 93010; 99285-25; G0378

== ENCOUNTER 2020-03-31 21:40 | Emergency (ER) | payer OTHER | END 2020-04-01 01:20 | disposition E | LOC: JER 21:40 | DX: I46.9 Cardiac arrest, cause unspecified (principal) | CPT/HCPCS: 99285-25 ==